=== PATIENT | male | born 1995 | race Caucasian/White ===

== ENCOUNTER 2017-04-25 20:03 | Emergency (ER) | payer OTHER ==
[2017-04-25 20:31] VITALS: BP 168/89; PULSE 84; RESP 18; TEMP 97.9
[2017-04-25] MEDS ORDERED: IBUPROFEN 600 MG TAB PO STA (20:37)
--- NOTE | 2017-04-25 20:45 | ED ---
Upper Extremity HPI - General Chief Complaint: Extremity Injury, Upper Stated Complaint: [facility]. Fall. L side injury Time Seen by Provider: 04/25/17 20:26 Source: patient Mode of arrival: ambulatory Limitations: no limitations - History of Present Illness Initial Comments: 21-year-old male patient presents to emergency department today for evaluation of left shoulder pain. Patient states that around 6:45 PM he was at work, was walking through and slipped on some trash that was on the floor. He states he fell landing directly on his left shoulder. Patient denies hitting his head or losing consciousness with this. Patient states he is having significant pain to the left shoulder with any range of motion of the arm. He denies any numbness or tingling to the extremity Denies any previous injury to the arm. Denies any other injuries. Patient denies any headache, neck pain, back pain, chest pain, shortness of breath, dizziness, weakness, abdominal pain, nausea, vomiting, or difficulties with bowel movements or urination. Place: work - Related Data Previous Rx's Medication Instructions Recorded Ibuprofen 800 mg PO TID PRN #30 tablet 04/25/17 Allergies Allergy/AdvReac Type Severity Reaction Status Date / Time No Known Allergies Allergy Verified 04/25/17 20:38 Review of Systems ROS Statement: Those systems with pertinent positive or pertinent negative responses have been documented in the HPI. ROS Other: All systems not noted in ROS Statement are negative. Past Medical History Past Medical History: No Reported History History of Any Multi-Drug Resistant Organisms: None Reported Past Surgical History: No Surgical Hx Reported Past Psychological History: ADD/ADHD Smoking Status: Never smoker Past Alcohol Use History: None Reported Past Drug Use History: None Reported General Exam Limitations: no limitations General appearance: alert, in no apparent distress, other (This is a well- developed, well-nourished adult male patient in no acute distress. Vital signs upon presentation temperature 97.9F, pulse 84, respirations 18, blood pressure 168/89, pulse ox 94% on room air.) Head exam: Present: atraumatic, normocephalic, normal inspection Eye exam: Present: normal appearance, PERRL, EOMI. Absent: scleral icterus, conjunctival injection, periorbital swelling ENT exam: Present: normal exam, normal oropharynx, mucous membranes moist Neck exam: Present: normal inspection, full ROM, other (Nontender, no step-off, no deformity to firm midline palpation of the posterior cervical spine. Full range of motion without pain or limitation.). Absent: tenderness, meningismus, lymphadenopathy Respiratory exam: Present: normal lung sounds bilaterally. Absent: respiratory distress, wheezes, rales, rhonchi, stridor Cardiovascular Exam: Present: regular rate, normal rhythm, normal heart sounds. Absent: systolic murmur, diastolic murmur, rubs, gallop, clicks GI/Abdominal exam: Present: soft, normal bowel sounds. Absent: distended, tenderness, guarding, rebound, rigid Extremities exam: Present: normal inspection, normal capillary refill, other ( Skin to the left upper extremity is pink, warm, and dry. No evidence of ecchymosis, surfaced,, or abrasions. No bony tenderness. No acromioclavicular joint tenderness. Cap refill is less than 3 seconds. Radial pulses are 2+ and equal bilaterally. Strength is 5/5 bilateral upper extremities.). Absent: full ROM (Patient has decreased range of motion due to increased pain with movement. Patient does have approximate 90 of abduction before pain makes it too difficult to continue. He has approximately 45 of forward flexion before pain makes it too difficult to continue. He is able to hyperextend without any difficulty or pain.), tenderness, pedal edema, joint swelling, calf tenderness Back exam: Present: normal inspection, other (Nontender, no step-off, no deformity to firm midline palpation of the thoracic and lumbar vertebrae. Full range of motion without pain or limitation.). Absent: tenderness, vertebral tenderness Neurological exam: Present: alert, oriented X3, CN II-XII intact Psychiatric exam: Present: normal affect, normal mood Skin exam: Present: warm, dry, intact, normal color. Absent: rash Course Vital Signs 04/25/17 20:26 Temperature 97.9 F Pulse Rate 84 Respiratory 18 Rate Blood Pressure 168/89 O2 Sat by Pulse 94 L Oximetry Medical Decision Making - Medical Decision Making 71-year-old male patient presents for evaluation of left shoulder pain after injury at work. Physical exam is unremarkable. Patient neurovascular status intact. X-ray of the left shoulder shows no acute osseous abnormalities. Patient was instructed to take ibuprofen for pain control. He is instructed to do gentle range of motion exercises with the shoulder. He is instructed to follow-up with the orthopedic physician or industrial health services should his symptoms worsen or persist. He is instructed to return here immediately for any new, worsening, or concerning symptoms. He verbalizes understanding and agrees with this plan. - Radiology Data Radiology results: report reviewed, image reviewed 3 view left shoulder x-ray shows no fracture nor dislocation. Glenohumeral joint is intact. There are no pathologic calcifications. Impression by Dr. Mac shows negative left shoulder exam. Disposition Clinical Impression: Left shoulder strain Disposition: HOME SELF-CARE Condition: Good Instructions: Shoulder Pain (ED) Additional Instructions: Apply ice 20 minutes at a time at least 4 times daily. Start gentle range of motion exercises. Follow up with their primary care physician or industrial health services for recheck in 1-2 days. Return here immediately for any new, worsening, or concerning symptoms. Prescriptions: Ibuprofen 800 mg PO TID PRN #30 tablet PRN Reason: Pain Referrals: None,Stated [Primary Care Provider] - 1-2 days Time of Disposition: 21:16
--- NOTE | 2017-04-25 20:57 | XR ---
EXAMINATION TYPE: XR shoulder complete LT DATE OF EXAM: 04/25/2017 COMPARISON: NONE HISTORY: Pain TECHNIQUE: 3 views FINDINGS: I see no fracture nor dislocation. Glenohumeral joint is intact. There are no pathologic ca lcifications. IMPRESSION: Negative left shoulder exam
== END 2017-04-25 21:22 | disposition home or self-care (01) ==
LOC: EC 20:03
DX: S46.912A Strain of unspecified muscle, fascia and tendon at shoulder and upper arm level, left arm, initial encounter (principal); W01.0XXA Fall on same level from slipping, tripping and stumbling without subsequent striking against object, initial encounter; Y93.01 Activity, walking, marching and hiking; Y99.0 Civilian activity done for income or pay; Y92.69 Other specified industrial and construction area as the place of occurrence of the external cause
CPT/HCPCS: 99283